=== PATIENT | female | born 2000 | race Caucasian/White ===

== ENCOUNTER 2022-03-03 19:02 | Emergency (ER) | payer OTHER ==
[2022-03-03 19:14] VITALS: BP 147/84
[2022-03-03 20:02] LABS: BILIRUBIN,URINE NEGATIVE (NEGATIVE); GLUCOSE, URINE (UA) NEGATIVE (NEGATIVE); KETONES,URINE (UA) NEGATIVE (NEGATIVE); LEUKOCYTE ESTERASE, URINE NEGATIVE (NEGATIVE); NITRITE,URINE NEGATIVE (NEGATIVE); OCCULT BLOOD,URINE MODERATE (NEGATIVE); PH,URINE 7.5 PH (5.0-7.5); PROTEIN,URINE TRACE mg/dL (NEGATIVE); UROBILINOGEN,URINE 0.2 (NORMAL) E.U./dL (NORMAL)
[2022-03-03 20:04] LABS: CLARITY,URINE CLOUDY (CLEAR); HCG UR QUAL NEGATIVE
[2022-03-03 20:13] LABS: AMORPHOUS SEDIMENT,UR Few /LPF; BACTERIA,URINE Moderate /HPF (None Seen); SQUAMOUS EPITHELIAL CELL,UR RARE Squamous (<= Few)
[2022-03-03] MEDS ORDERED: NITROFURANTOIN MACRO 100 MG CAPSULE PO STA (20:42)
--- NOTE | 2022-03-03 20:56 | ED Physician Documentation ---
PD HPI ABD PAIN - Stated complaint Stated Complaint: FEMALE PAIN - Chief complaint Chief Complaint: UTI - History obtained from History obtained from: Patient - History of Present Illness Timing - onset: Enter time (11:00), Today Timing - details: Gradual onset Pain level now: 2 Quality: Cramping, Pain Location: Other (across anterior pelvis and lower abdomen) Radiation: Other (radiates across lower back) Improved by: Other (no ameliorating factors) Worsened by: Palpation (mild component of tenderness to palpation) Associated symptoms: Nausea (mild). No: Fever, Vomiting, Diarrhea, Constipation Similar symptoms before: Diagnosis (patient says some similarity to previous urinary tract infections she has had) Recently seen: Not recently seen Review of Systems Constitutional: denies: Fever GI: reports: Abdominal Pain, Nausea (mild). denies: Abdominal Swelling, Vomiti ng, Constipation, Diarrhea : reports: Dysuria, Frequency, LMP ("a few months" per patient). denies: Vaginal bleeding PD PAST MEDICAL HISTORY - Past Medical History Past Medical History: No - Past Surgical History Past Surgical History: Yes HEENT: Tonsil/Adenoidectomy - Present Medications Home Medications: Ambulatory Orders Medication Instructions Recorded Confirmed Escitalopram [Lexapro] 10 mg PO DAILY 03/03/22 03/03/22 Nitrofurantoin [Macrobid] 100 mg PO BID #9 cap 03/03/22 Non Formulary 1 tab PO DAILY 03/03/22 03/03/22 hydrOXYzine HCL [Hydroxyzine HCl] 25 mg PO TID PRN 03/03/22 03/03/22 - Allergies Allergies/Adverse Reactions: Allergies Allergy/AdvReac Type Severity Reaction Status Date / Time No Known Drug Allergies Allergy Verified 03/03/22 19:14 - Social History Does the pt smoke?: No Smoking Status: Never smoker Does the pt drink ETOH?: Yes ETOH Use: Wine, Liquor Does the pt have substance abuse?: No - Immunizations Immunizations are current?: Yes - POLST Patient has POLST: No PD ED PE NORMAL - Vitals Vital signs reviewed: Yes - General General: Alert and oriented X 3, No acute distress, Well developed/nourished - Cardiac Cardiac: RRR, No murmur - Respiratory Respiratory: No respiratory distress, Clear bilaterally - Abdomen Abdomen: Normal bowel sounds, Soft, Non tender, Non distended - Back Back: No CVA TTP - Derm Derm: No rash Results - Vitals Vitals: Oxygen O2 Source Room air - Labs Labs: Laboratory Tests 03/03/22 19:25 Urine Color YELLOW Urine Clarity CLOUDY Urine pH 7.5 Ur Specific [place] 1.020 Urine Protein TRACE Urine Glucose (UA) NEGATIVE Urine Ketones NEGATIVE Urine Occult Blood MODERATE H Urine Nitrite NEGATIVE Urine Bilirubin NEGATIVE Urine Urobilinogen 0.2 (NORMAL) Ur Leukocyte Esterase NEGATIVE Urine RBC 11-25 H Urine WBC 4-5 Ur Squamous Epith Cells RARE Squamous Amorphous Sediment Few Urine Bacteria Moderate H Ur Microscopic Review INDICATED Urine Culture Comments NOT INDICATED Urine HCG, Qual NEGATIVE PD MEDICAL DECISION MAKING - ED course Complexity details: reviewed results, considered differential, d/w patient ED course: UA shows 11-25 RBC, no WBC but moderate bacteria despite only rare squamous cells. urine HCG is negative. There is no significant tenderness on exam. Patient says her symptoms have some similarity to previous urinary tract infections. We discussed results and plan is to treat for presumed UTI at this time, but return if worse and follow up with PMD in 3-4 days if symptoms persist Departure - Departure Disposition: 01 Home, Self Care Clinical Impression: Pelvic pain in female Condition: Good Instructions: ED Abdominal Pain Female Non-Specific Abdominal Pain Follow-Up: LEXUS HOLBROOK ARNP [Primary Care Provider] - Prescriptions: Nitrofurantoin [Macrobid] 100 mg PO BID #9 cap Comments: The urinalysis was not diagnostic of urinary tract infection, but there are bacteria noted (urine should be sterile/ no bacteria), and some of your symptoms are suggestive of a urinary tract infection (burning dysuria, frequency) and, as we discussed, I do not have a high suspicion for a dangerous alternative diagnosis such as appendicitis or kidney infection. At this time you are being given an antibiotic (with prescription electronically submitted to [facility] pharmacy in [place]); if it is a urinary tract infection, you should feel much better within 1-2 days. If your symptoms persist through the weekend, follow up with your primary care provider in 3-4 days. If you are worse, return to the emergency department for reevaluation Discharge Date/Time: 03/03/22 21:01
== END 2022-03-03 21:01 | disposition home or self-care (01) ==
LOC: ED 19:02
DX: R10.2 Pelvic and perineal pain (principal)
CPT/HCPCS: 81001; 81025; 99283; A9270; 81003; 87086